=== PATIENT | male | born 1990 | race Caucasian/White ===

== ENCOUNTER 2018-07-31 22:01 | Emergency (ER) | payer MEDICAID ==
[~2018-07-31] VITALS: Ht 167.6 cm; Wt 90.7 kg
[2018-07-31 22:25] VITALS: BP 121/70
--- NOTE | 2018-07-31 22:30 | NUR ---
PT TO ER BED 4, PROVIDED URINE SAMPLE.
--- NOTE | 2018-07-31 23:12 | NUR ---
PT PRESENTS TO ED WITH C/O DYSURIA AND LOW BACK PAIN X 2 MOS. PT REPORTS BEING SEEN IN ED PREVIOUSLY WITH AND GIVEN ABX FOR A UTI WITH NO RELIEF. NO BLADDER DISTENTION NOTED, NO OTHER COMPLAINTS AT THIS TIME. PT PLACED INTO BED, PENDING MD SHELDON.
[2018-08-01 00:18] LABS: APPEARANCE,URINE CLEAR (CLEAR); BILIRUBIN,URINE NEGATIVE (NEGATIVE); BLOOD, URINE NEGATIVE (NEGATIVE); COLOR,URINE YELLOW (YELLOW); LEUKOCYTE ESTERASE ,URINE NEGATIVE (NEGATIVE); NITRITE, URINE NEGATIVE (NEGATIVE); PH,URINE 6.5 (5.0-9.0); UGLUCOSE NEGATIVE (NEGATIVE)
--- NOTE | 2018-08-01 00:51 | NUR ---
Patient discharged with v/s stable. Written and verbal after care instructions given and explained. Patient alert, oriented and verbalized understanding of instructions. Ambulatory with steady gait. All questions addressed prior to discharge. ID band removed. Patient advised to follow up with PMD. Rx of PYRIDUM given. Patient educated on indication of medication including possible reaction and side effects. Opportunity to ask questions provided and answered.
[2018-08-01 00:52] VITALS: BP 118/68
== END 2018-08-01 00:52 | disposition home or self-care (01) ==
LOC: MED 22:01
DX: R30.9 Painful micturition, unspecified (principal); R39.198 Other difficulties with micturition
CPT/HCPCS: 74018; 81003; 99284; Q0092; 99283

== ENCOUNTER 2018-11-26 00:35 | Emergency (ER) | payer MEDICAID ==
[~2018-11-26] VITALS: Ht 167.6 cm; Wt 77.1 kg
--- NOTE | 2018-11-26 00:35 | NUR ---
PATIENT BIB EMS TO ER BED 10.
[2018-11-26 00:40] VITALS: BP 150/91
--- NOTE | 2018-11-26 00:40 | NUR ---
PT WAS BIBA ON 4 POINT RESTRAINT. PT REMOVED FROM ALL 4 RESTRAINTS. PT IS CALM AND COOPERATIVE. PT HEARING VOICES, DENIES SUICIDAL IDEATION OR HOMICIDAL IDEATION.
--- NOTE | 2018-11-26 00:45 | NUR ---
PT IS A 28 Y/O MALE BIB EMS WHO PRESENTS TO THE ED C/O ALOC. PER EMS, 911 WAS CALLED BY FAMILY, PT WAS BECOMING COMBATIVE. PT ARRIVED TO ED IN 4 POINT RESTRAINT, D/C IN ED. PT ADMITTED TO EMS HE SMOKED MARIJUANA EARLIER TODAY. PT ADMITS TO HEARING VOICES, BUT DENIES SUICIDAL IDEATION. PT DENIES PAIN AT THIS TIME. PT DENIES CP, SOB, N/V/D. PT AWAKE BUT CONFUSED, ASKING FOR FATHER. PT REPOSITIONED FOR COMFORT, BED IN LOWEST POSITION. ER MD DR. HAND NOTIFIED. WILL CONTINUE TO MONITOR. HX DENIES
--- NOTE | 2018-11-26 00:50 | NUR ---
DR. HAND EVALUATING PATIENT AT BEDSIDE.
[2018-11-26] MEDS ORDERED: HALOPERIDOL IM 5 MG/ML VIAL IM ONE (00:55)
[2018-11-26 01:02] LABS: BASOPHILS % (AUTO) 0.3 % (0.0-2.0); EOSINOPHILS % (AUTO) 0.1 % (0.0-4.0); HEMATOCRIT 46.4 % (36-52); HEMOGLOBIN 15.8 g/dL (12.0-18.0); LYMPHOCYTES % (AUTO) 22.3 % (20.5-51.1); MEAN CORPUSCULAR HEMOGLOBIN 31 pg (27-31); MEAN CORPUSCULAR HGB CONC 34 g/dL (33-37); MEAN CORPUSCULAR VOLUME 91.5 fL (80-94); MONOCYTES % (AUTO) 5.9 % (1.7-9.3); NEUTROPHILS # (AUTO) 8.8 K/uL (1.8-7.7); NEUTROPHILS % (AUTO) 71.4 % (42.2-75.2); PLATELET COUNT (AUTO) 240 K/uL (140-450); RED BLOOD CELL COUNT(AUTO) 5.07 MIL/uL (4.20-6.10); RED CELL DISTRIBUTION WIDTH 12.5 % (11.6-13.7); WHITE BLOOD COUNT (AUTO) 12.3 K/uL (4.8-10.8)
[2018-11-26 01:03] LABS: LYMPHOCYTES # (AUTO) 2.7 K/uL (2.0-11.5); MONOCYTES # (AUTO) 0.7 K/uL (0.8-1.0)
--- NOTE | 2018-11-26 01:15 | NUR ---
# 14 FR Urinary catheter inserted utilizing sterile technique. Immediate return of 300 ml YELLOW urine noted. Urine sample collected and sent to lab. Pt tolerated procedure WELL. Catheter removed, intact.
[2018-11-26 01:17] LABS: ANION GAP 15.2 (8-16); ASPARTATE AMINOTRANSFERASE 32 U/L (15-37); CARBON DIOXIDE 24.4 mmol/L (21-32); CHLORIDE 98 mmol/L (98-107); CREATININE 1.3 mg/dL (0.7-1.3); GFR ARICAN-AMERICAN 84 mL/min (>90); GLUCOSE 165 mg/dL (74-106); SODIUM SERUM 135 mmol/L (136-145); TOTAL BILIRUBIN 1.1 mg/dL (0.0-1.0); UREA NITROGEN, BLOOD 15 mg/dL (7-18)
[2018-11-26 01:20] LABS: ACETAMINOPHEN < 0.5 ug/ml (10-30); POTASSIUM 2.6 mmol/L (3.5-5.1); SALICYLATE < 2.8 mg/dL (2.8-20.0)
[2018-11-26] MEDS ORDERED: KCL 20 MEQ/WATER INJ PREMIX 100 ML IV ONE (01:20)
--- NOTE | 2018-11-26 02:35 | NUR ---
PT IN BED, SLEEPING. ATTACHED TO ALL MONITORS. MOTHER AT BEDSIDE.
[2018-11-26 02:46] LABS: BARBITURATE, URINE NEG. ng/ml (NEG <=200); BENZODIAZEPINE, URINE NEG. ng/mL (NEG <=200); CANNABINOID, URINE POS. ng/mL (NEG <=50); COCAINE, URINE NEG. ng/mL (NEG <=300); OPIATE, URINE NEG. ng/mL (NEG <=2000); PHENCYCLIDINE SCREEN,URINE NEG. ng/mL (NEG <=25)
--- NOTE | 2018-11-26 04:22 | NUR ---
Patient discharged with v/s stable. Written and verbal after care instructions given and explained. Patient verbalized understanding. Ambulatory with steady gait. All questions addressed prior to discharge. Advised to follow up with PMD.
[2018-11-26 04:23] VITALS: BP 108/73
== END 2018-11-26 04:23 | disposition home or self-care (01) ==
LOC: MED 00:35
DX: E87.6 Hypokalemia (principal); F12.10 Cannabis abuse, uncomplicated
CPT/HCPCS: 36415; 80053; 80305; 85025; 96365; 96372; 99283; C1758; G0480; G0482; J1630; J3480

== ENCOUNTER 2018-12-31 01:40 | Inpatient (IN) | payer MEDICAID ==
[~2018-12-31] VITALS: Ht 172.7 cm; Wt 53.5 kg
[2018-12-31 01:40] VITALS: BP 127/90
--- NOTE | 2018-12-31 01:40 | NUR ---
28/M BIB [facility] FROM. PT'S SISTER CALLED 911 C/O PT LOSING WEIGHT AND EATING LESS X2 DAYS. PER EMS, PT AGREED TO BE BROUGHT TO HOSPITAL TO SATISFY FAMILY'S CONCERNS. PT REPORTS EATING REGULARLY AND LOSING "SOME" WEIGHT, UNABLE TO QUANTIFY. REPORTS 7/10 CHRONIC BACK PAIN, DENIES ABD PAIN. PT DENIES ANY FEVER/CHILLS, N/V/D, CONSTIPATION. AOX4, GCS 15, FLAT AFFECT, SKIN NORMAL WARM DRY, RR EVEN AND UNLABORED. BS ACTIVE X4, ABD SOFT ROUND NONTENDER. DENIES MED HX, RX OR OTC. DENIES MENTAL HEALTH HX, ALCOHOL OR SUBSTANCE ABUSE.
--- NOTE | 2018-12-31 01:40 | NUR ---
PT CELINE BLS. TAKEN TO BED 3
--- NOTE | 2018-12-31 01:47 | NUR ---
PT REFUSED ACCUCHECK, DR RIDER MADE AWARE. DR RIDER EVALUATING PT. PT AGREED TO HAVE BLOODWORK PERFORMED AT THIS TIME.
--- NOTE | 2018-12-31 01:47 | NUR ---
Dr. Jimenez evaluating patient at bedside.
[2018-12-31 02:13] LABS: BASOPHILS # (AUTO) 0.1 K/uL (0.00-0.22); BASOPHILS % (AUTO) 0.6 % (0.0-2.0); EOSINOPHILS # (AUTO) 0.1 K/uL (0-0.4); HEMATOCRIT 43.7 % (36-52); HEMOGLOBIN 15.1 g/dL (12.0-18.0); LYMPHOCYTES # (AUTO) 2.4 K/uL (2.0-11.5); LYMPHOCYTES % (AUTO) 25.8 % (20.5-51.1); MEAN CORPUSCULAR HEMOGLOBIN 31 pg (27-31); MEAN CORPUSCULAR HGB CONC 35 g/dL (33-37); MEAN CORPUSCULAR VOLUME 90.2 fL (80-94); MONOCYTES # (AUTO) 0.8 K/uL (0.8-1.0); MONOCYTES % (AUTO) 8.5 % (1.7-9.3); NEUTROPHILS % (AUTO) 64.1 % (42.2-75.2); PLATELET COUNT (AUTO) 246 K/uL (140-450); RED BLOOD CELL COUNT(AUTO) 4.84 MIL/uL (4.20-6.10); RED CELL DISTRIBUTION WIDTH 12.5 % (11.6-13.7); WHITE BLOOD COUNT (AUTO) 9.3 K/uL (4.8-10.8)
[2018-12-31 02:13] LABS: APPEARANCE,URINE CLEAR (CLEAR); BILIRUBIN,URINE NEGATIVE (NEGATIVE); BLOOD, URINE TRACE-L (NEGATIVE); COLOR,URINE YELLOW (YELLOW); LEUKOCYTE ESTERASE ,URINE NEGATIVE (NEGATIVE); NITRITE, URINE NEGATIVE (NEGATIVE); UGLUCOSE NEGATIVE (NEGATIVE)
--- NOTE | 2018-12-31 02:15 | NUR ---
PT'S SISTER AT BEDSIDE. REPORTS THAT SHE FEELS THAT PT HAS BEEN LOSING WEIGHT AND HAS NOT BEEN EATING MUCH X1.5 MONTH, AND REPORTS N/V TONIGHT. PT HAS ALSO STATED THAT "THIS WILL BE MY LAST DAY WITH YOU GUYS." PT DENIES SI/PLAN OR SI HX AT THIS TIME. DR RIDER MADE AWARE.
[2018-12-31 02:21] LABS: BARBITURATE, URINE NEG. ng/ml (NEG <=200); BENZODIAZEPINE, URINE NEG. ng/mL (NEG <=200); CANNABINOID, URINE POS. ng/mL (NEG <=50); COCAINE, URINE NEG. ng/mL (NEG <=300); OPIATE, URINE NEG. ng/mL (NEG <=2000); PHENCYCLIDINE SCREEN,URINE NEG. ng/mL (NEG <=25)
--- NOTE | 2018-12-31 02:22 | NUR ---
DR RIDER AT BEDSIDE SPEAKING WITH DAUGHTER AND MOTHER
[2018-12-31 02:24] LABS: RBC,URINE 0-5 /HPF (0-5); WBC,URINE 0-5 /HPF (0-5)
[2018-12-31 02:25] LABS: CARBON DIOXIDE 32.2 mmol/L (21-32); CHLORIDE 99 mmol/L (98-107); GFR ARICAN-AMERICAN 114 mL/min (>90); GLUCOSE 122 mg/dL (74-106); POTASSIUM 3.2 mmol/L (3.5-5.1); SODIUM SERUM 138 mmol/L (136-145); UREA NITROGEN, BLOOD 9 mg/dL (7-18)
[2018-12-31 02:34] LABS: ACETAMINOPHEN < 0.5 ug/ml (10-30); SALICYLATE < 2.8 mg/dL (2.8-20.0)
[2018-12-31 02:35] LABS: ALBUMIN 3.8 g/dL (3.4-5.0); ASPARTATE AMINOTRANSFERASE 27 U/L (15-37); TOTAL BILIRUBIN 0.6 mg/dL (0.0-1.0)
[2018-12-31 02:42] LABS: FREE T4 (FREE THYROXINE) 1.29 ng/dL (0.76-1.46); THYROID STIMULATING HORMONE 2.32 uIU/mL (0.34-3.74)
[2018-12-31] MEDS ORDERED: POTASSIUM CHLORIDE 10 MEQ TABER PO ONE (02:45)
--- NOTE | 2018-12-31 02:48 | NUR ---
TELEPSYCH INITIATED PER DR. Sergei RIDER
[2018-12-31] MEDS ORDERED: NACL 0.9% 1,000 ML IV ONE (02:55)
--- NOTE | 2018-12-31 03:18 | NUR ---
PT'S MOTHER REQUESTING FOR IV FLUIDS, AND CT OF HEAD AND BODY. DR RIDER MADE AWARE. PER DR RIDER, CT OF HEAD AND BODY IS NOT INDICATED AT THIS TIME. OK TO START IV AND GIVE NS BOLUS. PT AND PT'S MOTHER MADE AWARE. PT AGREED TO HAVE IV INSERTED, SUCCESSFUL AFTER 3 ATTEMPTS, PT TOLERATED WELL. IV NS BOLUS STARTED ORDERED WITH EDUCATION. VSS. RR EVEN AND UNLABORED. ALL NEEDS MET AT THIS TIME.
--- NOTE | 2018-12-31 03:57 | NUR ---
FOLLOW UP CALL MADE TO TELEPSYCH PER DR. RIDER. TOLD HIGH CALL VOLUME FOR REQUESTS AND STILL IN QUEUE TO BE SEEN
--- NOTE | 2018-12-31 06:55 | NUR ---
TELEPSYCH, DR. GOLDMAN, CALLED BACK AND SPOKE WITH ELIZABETH LAMBERT
--- NOTE | 2018-12-31 07:00 | NUR ---
GAVE REPORT TO TELE PSYCH , DR GOLDMAN.
--- NOTE | 2018-12-31 07:05 | NUR ---
TELE PSYCH DR GOLDMAN EVALUATING PT WITH SISTER AND MOTHER AT THIS TIME.
--- NOTE | 2018-12-31 07:14 | NUR ---
Pt report given to IVY. Transfer of care at this time.
--- NOTE | 2018-12-31 07:31 | NUR ---
PER PSHYCIATRIST DR GOLDMAN, PT MEETS CRITERIA TO BE ADMITTED, CHARGE NURSE TOM NOTIFIED.
--- NOTE | 2018-12-31 07:41 | NUR ---
Patient transferred to bed 5 for further care. RN evaluating patient at bedside.
--- NOTE | 2018-12-31 08:10 | NUR ---
INTERRACTED WITH PATIENTS SISTER DEVAN AND MOTHER DWAYNE OBRIEN.
--- NOTE | 2018-12-31 08:10 | NUR ---
MADE AWARE OF RECOMMENDED TREATMENT TO PATIENT PER PSYCHIATRIST AFTER THE TELEPSYCH. CONSULT.
--- NOTE | 2018-12-31 08:10 | NUR ---
DR. MCGARRY READ REPORT OF REPORT,PSYCHIATRIST. PATIENT PLACED ON 5150 HOLD,HARM TO SELF.
--- NOTE | 2018-12-31 08:17 | NUR ---
PT TAKEN OFF THE UNIT VIA [facility] FOR CT OF THE HEAD
--- NOTE | 2018-12-31 08:21 | NUR ---
PT BROUGHT BACK FROM CT BY CATEGORY MANAGER, PT REFUSE PROCEDURE, DR MCGARRY NOTIFID.
--- NOTE | 2018-12-31 09:35 | NUR ---
RECEIVED REPORT FROM ELIZABETH HAYNES FOR TRANSFER OF CARE. PT ACTING APPROPRIATELY. SISTER AND MOTHER AT BEDSIDE. SITTER AT BEDSIDE AT THIS TIME FOR MONITORING.
--- NOTE | 2018-12-31 10:06 | NUR ---
PT ENCOURAGED TO EAT BREAKFAST, PT STATES HE IS NOT HUNGRY AT THIS TIME. PT PROVIDED WATER. TOLERATED WELL. PT ACTING AND CONVERSATING APPROPRIATELY. NO SIGNS AND SYMPTOMS OF DISTRESS NOTED. VSS. ENSURED SAFETY. MOTHER AND SISTER AT BEDSIDE. SITTER AT BEDSIDE FOR PT MONITORING.
--- NOTE | 2018-12-31 11:08 | NUR ---
PT AMBULATED TO THE BATHROOM WITH STEADY GAIT. SITTER AND MOTHER OUTSIDE THE BATHROOM FOR MONITORING.
--- NOTE | 2018-12-31 11:33 | NUR ---
PT ATTEMPTED TO GET UP FROM THE BED, ATTEMPTING TO LEAVE. RESPONDING TO EXTERNAL STIMULI. PT WAS REDIRECTED AND BACK TO BED. SITTER AT BEDSIDE FOR MONITORING.
--- NOTE | 2018-12-31 12:19 | NUR ---
PT IS LAYING DOWN. AAO X4, CALM, CONVERSATING AND ACTING APPROPRIATELY WITH MOTHER. ENSURED SAFETY. EMT AT BEDSIDE FOR MONITORING.
--- NOTE | 2018-12-31 13:35 | NUR ---
PT IS ASLEEP. EASILY AROUSABLE BY NAME. FULL CLEAR SPEECH, AAO X4. EVEN AND UNLABORED BREATHING. VSS. MOTHER AND SISTER AT BEDSIDE. SITTER AT BEDSIDE FOR MONITORING.
--- NOTE | 2018-12-31 14:45 | NUR ---
PT AAOX 4. FULL CLEAR SPEECH. ACTING APPROPRIATELY. EVEN AND UNLABORED BREATHING. ENSURED SAFETY. EMT AT BEDSIDE FOR MONITORING Addendum: 12/31/18 at 2026 by [email or web address] NOTE MADE BY DARREN ALICEA RN
--- NOTE | 2018-12-31 15:55 | NUR ---
PT AMBULATED TO THE BATHROOM STEADY GAIT WITH EMT. Addendum: 12/31/18 at 2026 by NICK NOTE MADE BY DARREN ALICEA RN
--- NOTE | 2018-12-31 17:12 | NUR ---
PT ASLEEP. EASILY AROUSABLE BY NAME. EVEN AND UNLABORED BREATHING. ACTING APPROPRIATELY. EMT AT BEDSIDE FOR MONITORING. Addendum: 12/31/18 at 2026 by [email or web address] NOTE MADE BY DARREN ALICEA RN
--- NOTE | 2018-12-31 18:45 | NUR ---
PT ASLEEP. EASILY AROUSABLE BY NAME. AAO X4. EVEN AND UNLABORED BREATHING. VSS. MOTHER AT BEDSIDE. ENSURED SAFETY. EMT AT BEDSIDE FOR MONITORING. Addendum: 12/31/18 at 2027 by [email or web address] NOTE MADE BY DARREN ALICEA RN
--- NOTE | 2018-12-31 19:15 | NUR ---
Pt report given to ELIZABETH Espino. Transfer of care at this time. Addendum: 12/31/18 at 2027 by NICK NOTE MADE BY DARREN ALICEA RN
--- NOTE | 2018-12-31 19:30 | NUR ---
RECEIVED REPORT FROM AM NURSE. PT LAYING IN BED, MOTHER AT BEDSIDE. RR EVEN AND UNLABORED. 1:1 SITTER AT BEDSIDE WITH CLOSE MONITORING, ENVIRONEMENT CHECKED, SAFETY MEASURES ENSURED.
--- NOTE | 2018-12-31 19:45 | NUR ---
PT OBSERVED EATING SANDWICH AND DRINKING JUICE AND TOLERATING WELL.
--- NOTE | 2018-12-31 20:03 | NUR ---
2003 CALLED [facility] FOR AN UPDATE STATUS ON AVAILABLE BEDS. NO BEDS AVAILABLE.
[2018-12-31] MEDS ORDERED: DEXT 5% /NACL 0.9% 1,000 ML IV SCH (20:48)
[2018-12-31] MEDS ORDERED: ZOLPIDEM 5 MG TAB PO PRN ×2 (20:50→21:00)
[2018-12-31] MEDS ORDERED: LORazepam 2 MG/ML VIAL IM/IVP PRN ×2 (20:50→21:00)
[2018-12-31] MEDS ORDERED: ONDANSETRON 4 MG/2 ML VIAL IM/IVP PRN ×2 (20:50→21:00)
[2018-12-31] MEDS ORDERED: ACETAMINOPHEN 325 MG TAB PO PRN ×2 (20:50→21:00)
[2018-12-31] MEDS ORDERED: DOCUSATE SODIUM 100 MG GELCAP PO PRN ×2 (20:50→21:00)
--- NOTE | 2018-12-31 21:00 | NUR ---
PT LAYING IN BED, MOTHER AT BEDSIDE. RR EVEN AND UNLABORED. 1:1 SITTER AT BEDSIDE WITH CLOSE MONITORING, ENVIRONEMENT CHECKED, SAFETY MEASURES ENSURED.
--- NOTE | 2018-12-31 21:01 | NUR ---
At this time there are still no vacancy at any of the deisgnated facilities , [facility] [place]f [place] is found , will continue to make calls for placement.
--- NOTE | 2018-12-31 21:23 | NUR ---
Patient will be admitted to care of DR. IBRAHIM. Admited to [facility]. Will go to room 109B. Belongings list completed. Report to ELIZABETH JI.
[2018-12-31] MEDS ORDERED: MELATONIN 3 MG TAB PO PRN (21:25)
[2018-12-31 21:30] LABS: CHOL/HDL RATIO 3.5 (1-4.5); MAGNESIUM 1.7 mg/dL (1.8-2.4); PHOSPHORUS 2.3 mg/dL (2.5-4.9)
--- NOTE | 2018-12-31 21:45 | NUR ---
Patient arrived in unit via wheelchair, accompanied by CLIENT TECHNICAL SPECIALIST and mother Dana; patient is A/Ox4, able to make needs known, flat affect, able to ambulate from wheelchair to bed with no assistance. Introduced self, oriented patient to room and hospital environment. No SOB or distress noted, on room air. Chief complaint of Confusion, s/p fall and weakness x 1.5 days; Diagnosis is suicidal ideation, 51/50 hold. IV site noted on left hand, 22 gauge, intact and flushed. Skin intact. Bed in the lowest position, call light within reach. Initial assessment done. Will continue to monitor.
[2018-12-31] MEDS: DEXT 5% /NACL 0.9% 1,000 ML IV SCH (22:56)
[2018-12-31] MEDS ORDERED: MIRTAZAPINE 15 MG TAB PO SCH (23:00)
[2018-12-31] MEDS ORDERED: MAG SULF 2000 MG/WATER PREMIX 50 ML IV SCH (23:00)
[2018-12-31] MEDS ORDERED: FAMOTIDINE 20 MG TAB PO SCH (23:00)
[2018-12-31] MEDS ORDERED: POTASSIUM PHOSPHATE 15 MM in NACL 0.9% 250 ML IV SCH (23:00)
--- NOTE | 2018-12-31 23:10 | NUR ---
Vitals taken, no distress noted.
[2019-01-01] VITALS: BP 113/71
[2019-01-01] MEDS ORDERED: POTASSIUM CHLORIDE 10 MEQ TABER PO SCH ×2 (00:30→11:00)
[2019-01-01] MEDS ORDERED: SODIUM PHOS / POTASSIUM PHOS 1 PKT PDR PO SCH (00:30)
--- NOTE | 2019-01-01 02:01 | NUR ---
Patient asleep, visible chest rise and fall noted.
--- NOTE | 2019-01-01 03:55 | NUR ---
Patient left unit to have CT scan abdomen/pelvis with contrast done.
--- NOTE | 2019-01-01 04:15 | NUR ---
Patient came back from CT scan at this time.
[2019-01-01] MEDS ORDERED: MAGNESIUM HYDROXIDE 2400 MG/30 ML UDC PO SCH (06:00)
--- NOTE | 2019-01-01 07:05 | NUR ---
Endorsed patient to AM shift RN for continuity of care; patient in stable condition.
--- NOTE | 2019-01-01 07:25 | NUR ---
RECEIVED BEDSIDE REPORT FROM OIL DRILLER NURSE FOR CONTINUITY OF CARE. PATIENT WAS RESTING ON BED. MOTHER DWAYNE WAS AT BEDSIDE. PATIENT WAS AROUSABLE BY VOICE BUT DID NOT REPLY WHEN I ASK HIM QUESTIONS. NO SIGNS OF DISTRESS NOTED. RESPIRATION EVEN AND UNLABORED ON RA. IV ON RAC 18G, CLEAN AND DRY, SL. IV ON L HAND 22G, INTACT AND CLEAN, INFUSING PER MD ORDER. SKIN INTACT AND CLEAN. ABLE TO AMBULATE AND CONTINENT. DISCUSSED PLAN OF CARE WITH PATIENT AND MOTHER, MOTHER DWAYNE VERBALIZED OK. SAFETY PRECAUTION IN PLACE. BED IN LOW POSITION AND 1:1 SITTER BY BEDSIDE.
[2019-01-01 08:00] VITALS: BP 123/84
[2019-01-01 08:15] LABS: BASOPHILS % (AUTO) 0.6 % (0.0-2.0); EOSINOPHILS % (AUTO) 0.8 % (0.0-4.0); HEMATOCRIT 38.5 % (36-52); HEMOGLOBIN 13.4 g/dL (12.0-18.0); LYMPHOCYTES # (AUTO) 2.2 K/uL (2.0-11.5); MEAN CORPUSCULAR HEMOGLOBIN 32 pg (27-31); MEAN CORPUSCULAR HGB CONC 35 g/dL (33-37); MEAN CORPUSCULAR VOLUME 90.5 fL (80-94); MONOCYTES # (AUTO) 0.4 K/uL (0.8-1.0); MONOCYTES % (AUTO) 8.2 % (1.7-9.3); NEUTROPHILS # (AUTO) 2.7 K/uL (1.8-7.7); NEUTROPHILS % (AUTO) 49.4 % (42.2-75.2); PLATELET COUNT (AUTO) 195 K/uL (140-450); RED BLOOD CELL COUNT(AUTO) 4.25 MIL/uL (4.20-6.10); RED CELL DISTRIBUTION WIDTH 12.4 % (11.6-13.7); WHITE BLOOD COUNT (AUTO) 5.4 K/uL (4.8-10.8)
--- NOTE | 2019-01-01 08:57 | NUR ---
PATIENT HAS BEEN SCREENED AND CATEGORIZED HIGH NUTRITION RISK. PATIENT WILL BE SEEN WITHIN 1-2 DAYS OF ADMISSION. 01/01/[address]
[2019-01-01] MEDS ORDERED: FAMOTIDINE 20 MG TAB PO SCH (09:00)
--- NOTE | 2019-01-01 09:40 | NUR ---
ADMINISTERED MED PER MD ORDER, PATIENT TOLERATED WELL. PATIENT IS AWAKE AND SITTING ON EDGE OF BED. DR MONREAL IS TALKING TO PATIENT AND MOTHER DWAYNE AT BEDSIDE. NO SIGNS OF DISTRESS NOTED. SAFETY MEASURES IN PLACE. 1:1 SITTER IS BY BEDSIDE.
--- NOTE | 2019-01-01 09:42 | NUR ---
Packet faxed to Verenice at [facility] for review.
--- NOTE | 2019-01-01 09:43 | NUR ---
Called [facility], s/w Kylie. No beds.
--- NOTE | 2019-01-01 09:44 | NUR ---
Called yissel Wilson/leander Turner. Patient info given to Johnny. She will call back when there are discharges.
[2019-01-01 10:12] LABS: ANION GAP 11.1 (8-16); CARBON DIOXIDE 28.3 mmol/L (21-32); CREATININE 0.8 mg/dL (0.7-1.3); POTASSIUM 3.4 mmol/L (3.5-5.1)
[2019-01-01 10:14] LABS: MAGNESIUM 2.2 mg/dL (1.8-2.4); PHOSPHORUS 3.6 mg/dL (2.5-4.9)
--- NOTE | 2019-01-01 11:14 | NUR ---
ADMINISTERED POTASSIUM PER MD, PATIENT TOLERATED WELL. PATIENT DENIES OF SUICIDAL IDEATION AND HEARING VOICES. NO SIGNS OF DISTRESS NOTED. MOTHER DWAYNE IS BY BEDSIDE. SAFETY MEASURES IN PLACE. 1:1 SITTER BY BEDSIDE.
--- NOTE | 2019-01-01 13:13 | NUR ---
PATIENT IS SITTING UP ON BED QUIETLY. HE HAS HIS EYES. MOTHER DWAYNE IS SITTING ON A CHAIR NEXT TO PATIENT'S BED. NO ABNORMAL BEHAVIOR NOTED. NO SIGNS OF DISTRESS NOTED. SAFETY MEASURES IN PLACE. 1:1 SITTER BY BEDSIDE.
--- NOTE | 2019-01-01 14:43 | NUR ---
Packet faxed to Johnny [facility] for review.
--- NOTE | 2019-01-01 15:05 | NUR ---
01/01/19 RD INITIAL ASSESSMENT COMPLETED PLEASE REFER TO NUTRITION ASSESSMENT UNDER CARE ACTIVITY FOR ESTIMATED NUTRITIONAL NEEDS. 1. CONTINUE REGULAR DIET TOLERATED 2. PT ENCOURAGED TO INCREASE PO INTAKE AND EDUCATED ON A GENERAL HEALTHY DIET 3. RD TO FOLLOW-UP 3-5 DAYS, MODERATE RISK KATY LAMA, RD
--- NOTE | 2019-01-01 15:15 | NUR ---
PATIENT IS AMBULATING AROUND IN HIS ROOM. PATIENT DENIES SUICIDAL IDEATION AND HEARING VOICES. MOTHER DWAYNE IS BY BEDSIDE. NO SIGNS OF DISTRESS NOTED. SAFETY MEASURES IN PLACE. 1:1 SITTER BY BEDSIDE.
[2019-01-01 16:00] VITALS: BP 116/79
[2019-01-01] MEDS: DEXT 5% /NACL 0.9% 1,000 ML IV SCH (16:54)
--- NOTE | 2019-01-01 17:10 | NUR ---
FAMILY IS AT BEDSIDE TALKING TO PATIENT. NO SIGNS OF DISTRESS NOTED. SAFETY MEASURES IN PLACE. 1:1 SITTER BY BEDSIDE.
--- NOTE | 2019-01-01 18:00 | NUR ---
Patient has been accepted to [facility], Bed#12-B. Under Dr. Baez. For report [phone].
--- NOTE | 2019-01-01 18:20 | NUR ---
[facility] [phone] AND GAVE FULL REPORT TO SHARON Mai RN. ANSWERED ALL SHARON'S QUESTIONS AND PROVIDED SHARON WITH A CALL BACK NUMBER FOR MORE INFOR NEEDED. SHARON WAS AWARE THAT PATIENT WILL BE TRANSFER TO HIS FACILITY AND PLACE IN ROOM 12 B UNDER THE CARE OF DR. HOLBROOK.
[2019-01-01] MEDS ORDERED: OLAN5TAB30 PO (18:23)
[2019-01-01] MEDS ORDERED: MIRT15TA4 PO (18:23)
--- NOTE | 2019-01-01 18:32 | NUR ---
INFORMED MOTHER DWAYNE AT BEDSIDE THAT PATIENT WILL BE TRANSFER TO [facility] AND HE WILL BE PLACE IN ROOM 12B. DWAYNE SAID SHE DOES NOT WANT HER SON TO BE TRANSFER AND SHE DOES NOT UNDERSTAND WHY HER SON HAS TO BE TRANSFER TO THE NEW PLACE. NOTIFIED DR SPARKS ON REGARDS AND IS TALKING TO PATIENT AND MOTHER DWAYNE AT THIS TIME BY BEDSIDE.
--- NOTE | 2019-01-01 18:51 | NUR ---
TRANSPORTATION ARRANGED WITH [facility] ETA 2000. Addendum: 01/01/19 at 1857 by Mignon Landers RN VINCENT [phone]
--- NOTE | 2019-01-01 19:08 | NUR ---
DR OLSEN IS TALKING TO PATIENT AND PATIENT'S FAMILY AT BEDSIDE. NO SIGNS OF DISTRESS NOTED. SAFETY MEASURES IN PLACE. 1:1 SITTER BY BEDSIDE.
--- NOTE | 2019-01-01 19:18 | NUR ---
ENDORSED PATIENT AT BEDSIDE TO MINE CAPTAIN NURSE FOR CONTINUITY OF CARE. PATIENT IS IN STABLE CONDITION. NO SIGNS OF DISTRESS NOTED. FAMILY MEMBERS ARE BY BEDSIDE. SAFETY MEASURES IN PLACE.
--- NOTE | 2019-01-01 19:20 | NUR ---
Received endorsement from AM shift RN; patient is A/Ox4, able to make needs known. Patient is talking with 3 family members; introduced self. No SOB or distress noted, on room air. IV site noted on left hand, 22 gauge, intact and flushed and right antecubital, 20 gauge, saline locked. Skin intact. Bed in the lowest position, call light within reach. Initial assessment done. Will continue to monitor.
--- NOTE | 2019-01-01 20:45 | NUR ---
Due meds given, tolerated well.
[2019-01-01] MEDS ORDERED: OLANZapine 5 MG TAB PO SCH (21:00)
[2019-01-01] MEDS ORDERED: MIRTAZAPINE 15 MG TAB PO SCH (21:00)
[2019-01-01 21:01] VITALS: BP 131/88
--- NOTE | 2019-01-01 21:35 | NUR ---
Patient left unit via gurney, accompanied by two transport personnel. Removed IV, lumen intact. Discharge paperwork signed and discharge packet given to mother. Patient able to ambulate from bed to gurney. Patient left unit in stable condition.
--- NOTE | 2019-01-02 10:15 | NUR ---
Spoke with Renuka from [facility] [place] . Per Renuka if Medical doesn't pay the transportation it will be a [facility] bill. Informed Renuka I will call [facility] and find out if they can give me the AUTH for transportation.
--- NOTE | 2019-01-02 10:18 | NUR ---
Called [facility] Keyla and they will not give AUTH for transportation at this time since the pt was already transported to [facility].
--- NOTE | 2019-01-02 10:23 | NUR ---
Faxed to [facility] the [employer] Form for transportation. Spoke with Renuka from [facility] and informed her [facility] will not give AUTH for transportation since the pt was already transported last night. [facility] will bill to [facility] and if the bill is rejected they will bill to [facility].
[2019-01-11 10:41] LABS: FOLIC ACID 10.9 ng/mL (>3.0)
== END 2019-01-01 21:35 | DRG 812 ==
LOC: MED 01:40 → MTU 20:48
PROVIDERS: ADMIT General Practice; ATTEND General Practice
DX: T40.7X1A Poisoning by cannabis (derivatives), accidental (unintentional), initial encounter (principal); G92 Toxic encephalopathy; E83.42 Hypomagnesemia; K56.7 Ileus, unspecified; F20.9 Schizophrenia, unspecified; F12.929 Cannabis use, unspecified with intoxication, unspecified; R10.13 Epigastric pain; E87.6 Hypokalemia; E86.0 Dehydration; F32.9 Major depressive disorder, single episode, unspecified; G47.00 Insomnia, unspecified; R63.4 Abnormal weight loss; Z68.1 Body mass index [BMI] 19.9 or less, adult; M79.672 Pain in left foot; Y92.89 Other specified places as the place of occurrence of the external cause; F19.959 Other psychoactive substance use, unspecified with psychoactive substance-induced psychotic disorder, unspecified
CPT/HCPCS: 36415; 70450; 71045; 73630; 80048; 80053; 80305; 81001; 82140; 82150; 82306; 82607; 82728; 82746; 83036; 83540; 83690; 83735; 84100; 84134; 84439; 84443; 85025; 85045; 85610; 85730; 87081; 87086; 93005; 99285; G0480; G0482; J3475; J7030; J7042; Q9967

== ENCOUNTER 2021-12-21 16:20 | Emergency (ER) | payer MEDICAID ==
[~2021-12-21] VITALS: Ht 167.6 cm; Wt 83.0 kg
[~2021-12-21 16:20] MED LIST: MIRT-33 PO; OLAN5TAB65 PO
[2021-12-21 16:28] VITALS: BP 138/77
--- NOTE | 2021-12-21 16:34 | NUR ---
YENNIFER. HANDED ON URINE CUP.
[2021-12-21 17:01] LABS: BASOPHILS % (AUTO) 0.5 % (0.0-2.0); EOSINOPHILS # (AUTO) 0.1 K/uL (0-0.4); HEMATOCRIT 46.6 % (36-52); HEMOGLOBIN 16.1 g/dL (12.0-18.0); LYMPHOCYTES # (AUTO) 3.3 K/uL (2.0-11.5); LYMPHOCYTES % (AUTO) 33.4 % (20.5-51.1); MEAN CORPUSCULAR HEMOGLOBIN 32 pg (27-31); MEAN CORPUSCULAR HGB CONC 35 g/dL (33-37); MEAN CORPUSCULAR VOLUME 93.2 fL (80-94); MONOCYTES # (AUTO) 0.7 K/uL (0.8-1.0); MONOCYTES % (AUTO) 7.3 % (1.7-9.3); NEUTROPHILS # (AUTO) 5.7 K/uL (1.8-7.7); NEUTROPHILS % (AUTO) 57.8 % (42.2-75.2); PLATELET COUNT (AUTO) 272 K/uL (140-450); RED CELL DISTRIBUTION WIDTH 12.5 % (11.6-13.7); WHITE BLOOD COUNT (AUTO) 9.9 K/uL (4.8-10.8)
[2021-12-21 17:12] LABS: ANION GAP 14.4 (8-16); CARBON DIOXIDE 27.6 mmol/L (21-32); TOTAL BILIRUBIN 0.3 mg/dL (0.0-1.0)
[2021-12-21] MEDS ORDERED: ALUMINUM HYD/MAG/SIMETHICONE 30 ML UDC PO ONE (17:25)
[2021-12-21] MEDS ORDERED: SUCRALFATE 1 GM TAB PO SCH (17:25)
[2021-12-21 17:58] VITALS: BP 138/77
== END 2021-12-21 17:58 | disposition home or self-care (01) ==
LOC: MED 16:20
DX: R10.12 Left upper quadrant pain (principal)
CPT/HCPCS: 36415; 80053; 83690; 85025; 99283

== ENCOUNTER 2022-02-20 18:59 | Emergency (ER) | payer MEDICAID ==
[~2022-02-20] VITALS: Ht 167.6 cm; Wt 87.2 kg
[2022-02-20 19:13] VITALS: BP 135/87
[2022-02-20 20:49] LABS: BASOPHILS # (AUTO) 0.1 K/uL (0.00-0.22); BASOPHILS % (AUTO) 0.6 % (0.0-2.0); EOSINOPHILS # (AUTO) 0.2 K/uL (0-0.4); EOSINOPHILS % (AUTO) 1.6 % (0.0-4.0); HEMATOCRIT 44.6 % (36-52); HEMOGLOBIN 15.4 g/dL (12.0-18.0); MEAN CORPUSCULAR HEMOGLOBIN 32 pg (27-31); MEAN CORPUSCULAR HGB CONC 35 g/dL (33-37); MONOCYTES # (AUTO) 0.7 K/uL (0.8-1.0); MONOCYTES % (AUTO) 6.8 % (1.7-9.3); NEUTROPHILS # (AUTO) 7.1 K/uL (1.8-7.7); PLATELET COUNT (AUTO) 243 K/uL (140-450); RED BLOOD CELL COUNT(AUTO) 4.75 MIL/uL (4.20-6.10); RED CELL DISTRIBUTION WIDTH 12.7 % (11.6-13.7)
[2022-02-20 21:03] LABS: PROTHROMBIN TIME 9.9 secs (10.8-13.4)
[2022-02-20 21:06] LABS: ALBUMIN 3.9 g/dL (3.4-5.0); CARBON DIOXIDE 29.7 mmol/L (21-32); CREATININE 0.9 mg/dL (0.6-1.3); POTASSIUM 3.7 mmol/L (3.5-5.1); TOTAL BILIRUBIN 0.5 mg/dL (0.0-1.0)
[2022-02-20 22:15] VITALS: BP 135/87
== END 2022-02-20 22:15 | disposition home or self-care (01) ==
LOC: MED 18:59
DX: K92.2 Gastrointestinal hemorrhage, unspecified (principal)
CPT/HCPCS: 36415; 80053; 85025; 85610; 85730; 86886; 86900; 86901; 99283

== ENCOUNTER 2022-05-23 10:21 | Emergency (ER) | payer MEDICAID ==
[~2022-05-23] VITALS: Ht 167.6 cm; Wt 71.7 kg
[2022-05-23 10:34] VITALS: BP 116/86
[2022-05-23] MEDS ORDERED: KETOROLAC 30 MG/ML VIAL IM ONE (12:25)
[2022-05-23] MEDS ORDERED: IBUP-2213 PO (13:18)
== END 2022-05-23 13:28 | disposition home or self-care (01) ==
LOC: MED 10:21
DX: S62.324A Displaced fracture of shaft of fourth metacarpal bone, right hand, initial encounter for closed fracture (principal); Z79.899 Other long term (current) drug therapy; X58.XXXA Exposure to other specified factors, initial encounter; Y93.89 Activity, other specified; Y92.89 Other specified places as the place of occurrence of the external cause; Y99.8 Other external cause status
CPT/HCPCS: 29125; 73130; 73140; 96372; 99284; J1885

== ENCOUNTER 2022-05-31 16:58 | Emergency (ER) | payer MEDICAID ==
[~2022-05-31] VITALS: Ht 167.6 cm; Wt 78.0 kg
[~2022-05-31 16:58] MED LIST changes: +IBUP-2213 PO
[2022-05-31 17:12] VITALS: BP 124/86
--- NOTE | 2022-05-31 17:17 | NUR ---
PATIENT AMBULATED TO BED 12.
--- NOTE | 2022-05-31 17:54 | NUR ---
31M PRESENTS TO ED WITH C/O OF RIGHT HAND PAIN. PT SEEN HERE ON 05/23/22 AND PLACED IN SPLINT FOR METACARPAL FRACTURE. STATED HE FOLLOWED UP WITH PCP TODAY AND WAS REFERRED TO ED TO BE PLACED IN A CAST. PT REPORTS 8/10 PULSATING PAIN. REPORTS TAKING IBUPROFEN WITH MILD RELIEF. DENIES NEW INJURY OR TRAUMA. DENIES NUMBNESS TINGLING. CAP REFILL LESS THAN 2 SECONDS. SENSATION EQUAL BILATERALLY.
[2022-05-31] MEDS ORDERED: IBUP-2213 PO (18:14)
[2022-05-31 18:56] VITALS: BP 124/86
--- NOTE | 2022-05-31 18:57 | NUR ---
pt left without dx paperwork at this time.
== END 2022-05-31 18:57 | disposition home or self-care (01) ==
LOC: MED 16:58
DX: M79.641 Pain in right hand (principal); R03.0 Elevated blood-pressure reading, without diagnosis of hypertension; Z09 Encounter for follow-up examination after completed treatment for conditions other than malignant neoplasm; Z79.899 Other long term (current) drug therapy
CPT/HCPCS: 99281

== ENCOUNTER 2023-09-23 18:52 | Emergency (ER) | payer MEDICAID ==
[~2023-09-23] VITALS: Ht 172.7 cm; Wt 98.4 kg
[2023-09-23 18:57] VITALS: BP 121/74; PULSE 111; RESP 20; TEMP 100.4; O2SAT 95
[2023-09-23] MEDS ORDERED: NACL 0.9% 1,000 ML IV ONE (19:15)
[2023-09-23 20:00] LABS: FLU A ANTIGEN negative (NEGATIVE); FLU B ANTIGEN NEGATIVE (NEGATIVE)
[2023-09-23] MEDS ORDERED: IBUPROFEN 800 MG TAB PO ONE (20:30)
[2023-09-23] MEDS ORDERED: IBUP-2213 PO (20:31)
[2023-09-23] MEDS ORDERED: BENZ200C4 PO (20:31)
[2023-09-23] MEDS ORDERED: ACET-2619 PO (20:31)
[2023-09-23] MEDS ORDERED: MUC600 PO (20:31)
[2023-09-23] MEDS ORDERED: PROM118S5 PO (20:31)
== END 2023-09-23 21:11 | disposition home or self-care (01) ==
LOC: MED 18:52
DX: J06.9 Acute upper respiratory infection, unspecified (principal); Z20.822 Contact with and (suspected) exposure to COVID-19; Z79.899 Other long term (current) drug therapy
CPT/HCPCS: 71045; 87426; 87804; 99284; Q0092

== ENCOUNTER 2023-12-18 08:56 | Emergency (ER) | payer MEDICAID ==
[~2023-12-18] VITALS: Ht 170.2 cm; Wt 102.6 kg
[~2023-12-18 08:56] MED LIST changes: +ACET-2619 PO; +BENZ200C4 PO; +MUC600 PO; +PROM118S5 PO
[2023-12-18 09:01] VITALS: BP 110/66; PULSE 70; RESP 18; TEMP 97.7; O2SAT 97
[2023-12-18 09:16] VITALS: BP 113/76; PULSE 67; RESP 21; TEMP 97.7; O2SAT 94
[2023-12-18] MEDS: KETOROLAC 30 MG/ML VIAL IM ONE (09:50)
[2023-12-18] MEDS: LIDOCAINE 5% 1 EA PATCH TP ONE (09:51)
[2023-12-18] MEDS ORDERED: LID5T TP (11:47)
[2023-12-18] MEDS ORDERED: IBUP-2213 PO (11:47)
== END 2023-12-18 12:05 | disposition home or self-care (01) ==
LOC: MED 08:56
DX: S23.9XXA Sprain of unspecified parts of thorax, initial encounter (principal); Z79.1 Long term (current) use of non-steroidal anti-inflammatories (NSAID); Z79.899 Other long term (current) drug therapy; X50.9XXA Other and unspecified overexertion or strenuous movements or postures, initial encounter; Y93.89 Activity, other specified; Y92.89 Other specified places as the place of occurrence of the external cause; Y99.8 Other external cause status
CPT/HCPCS: 71045; 93005; 96372; 99283; J1885